=== PATIENT | female | born 1985 | race Caucasian/White ===

== ENCOUNTER 2017-02-26 05:49 | Emergency (ER) | payer SELFPAY ==
[2017-02-26] MEDS ORDERED: FLUORESCEIN 1 MG EYE STRIP ONE (05:53)
[2017-02-26] MEDS ORDERED: TETRACAINE 0.5% - 2 ML EYE DROPS ONE (05:53)
[2017-02-26] MEDS ORDERED: Sodium Chloride 0.9% 1,000 ML PRIMARY IV ONE ×2 (05:58→07:19)
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
[2017-02-26 06:14] LABS: BILIRUBIN,URINE NEGATIVE (NEG); COLOR,URINE YELLOW; GLUCOSE, URINE (UA) NEGATIVE (NEG); NITRATE,URINE NEGATIVE (NEG); OCCULT BLOOD,URINE SMALL (NEG); PROTEIN,URINE NEGATIVE (NEG); UROBILINOGEN,URINE 0.2 EU/dL (0.2)
[2017-02-26 06:16] LABS: CLARITY,URINE CLEAR (CLEAR)
[2017-02-26 06:19] LABS: BACTERIA,URINE FEW; SQUAMOUS EPITHELIAL CELL,UR MANY; URINE SAMPLE TYPE CLEAN CATCH URINE
[2017-02-26 06:20] LABS: BASOPHILS # (AUTO) 0.04 10*3/UL; BASOPHILS % (AUTO) 0.3 % (0-1); EOSINOPHILS # (AUTO) 0.03 10*3/UL; EOSINOPHILS % (AUTO) 0.2 % (0-8); HEMATOCRIT 44.3 % (37.0-47.0); LYMPHOCYTES # (AUTO) 2.46 10*3/uL; MEAN CORPUSCULAR HEMOGLOBIN 29.5 PG (27-31); MEAN CORPUSCULAR HGB CONC 33.9 g/dL (33-37); MEAN CORPUSCULAR VOLUME 87.2 FL (81-99); MEAN PLATELET VOLUME 9.5 FL (7.4-12.2); MONOCYTES # (AUTO) 0.83 10*3/UL (0.3-0.8); MONOCYTES % (AUTO) 6.6 % (5-15); NEUTROPHILS # (AUTO) 9.22 10*3/UL; NEUTROPHILS % (AUTO) 73.2 % (50-80); RED BLOOD COUNT 5.08 10^6/uL (4.20-5.40)
[2017-02-26 06:23] LABS: PLATELET MORPHOLOGY COMMENT NORMAL MORPHOLOGY (NORM); RBC MORPHOLOGY COMMENT NORMAL MORPHOLOGY (NORM); WBC MORPHOLOGY COMMENT NORMAL MORPHOLOGY (NORM)
[2017-02-26 06:24] LABS: AMPHETAMINE SCREEN NEGATIVE (NEG); CANNABINOID SCREEN,URINE NEGATIVE (NEG); COCAINE SCREEN NEGATIVE (NEG); METHADONE URINE SCREEN NEGATIVE (NEG); METHAMPHETAMINES SCREEN,URINE NEGATIVE (NEG); OPIATE SCREEN,URINE NEGATIVE (NEG)
[2017-02-26 06:27] VITALS: TEMP 98.3
[2017-02-26 06:45] LABS: BLOOD UREA NITROGEN 11 mg/dL (7-22); BUN/CREATININE RATIO 15.71 (6-20); CALCIUM 10.7 mg/dL (8.7-10.7); EST GLOMERULAR FILTRATION > 60 (>60 ml/min/1.73m(2)); MAGNESIUM 2.1 mg/dL (1.6-2.4); SERUM ALBUMIN 5.1 g/dL (3.5-4.8)
[2017-02-26 06:56] LABS: FREE T4 (FREE THYROXINE) 1.49 ng/dL (0.93-1.71)
[2017-02-26] MEDS ORDERED: TOBRAMYCIN 0.3% - 5 ML EYE DROPS EACH EYE ONE (06:59)
[2017-02-26] MEDS ORDERED: HALOPERIDOL LACTATE 5 MG/1 ML AMPULE IVP ONE (09:53)
[2017-02-26] MEDS ORDERED: diphenhydrAMINE 50 MG/1 ML VIAL IVP ONE (09:54)
[2017-02-26] MEDS ORDERED: LORazepam 2 MG/1 ML VIAL IVP ONE (09:55)
[2017-02-26 14:42] VITALS: RESP 14
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
== END 2017-02-26 12:10 | disposition home or self-care (01) ==
LOC: ER 05:49
DX: R41.82 Altered mental status, unspecified (principal); R44.0 Auditory hallucinations; F31.9 Bipolar disorder, unspecified; F20.9 Schizophrenia, unspecified; H57.11 Ocular pain, right eye
CPT/HCPCS: 80053; 80178; 80305; 81001; 81003; 83735; 84439; 84443; 84703; 85025; 96361; 96374; 96375; 99283 ×2; J1200; J1630; J2060; J7030